=== PATIENT | female | born 1985 | race Hispanic/Latino ===

== ENCOUNTER 2017-11-06 15:07 | Observation (INO) | payer MEDICAID ==
[~2017-11-06] VITALS: Ht 149.9 cm; Wt 116.1 kg
[2017-11-06 16:05] LABS: APPEARANCE,URINE Clear (CLEAR); BILIRUBIN,URINE Negative (NEGATIVE); COLOR,URINE Yellow (YELLOW); GLUCOSE, URINE (UA) Negative (NEGATIVE); KETONES,URINE Negative (NEGATIVE); LEUKOCYTE ESTERASE ,URINE Small (NEGATIVE); NITRATE,URINE Negative (NEGATIVE); OCCULT BLOOD,URINE Negative (NEGATIVE); PH,URINE 5.5 (5.0-8.0); PROTEIN,URINE Trace (NEGATIVE); UROBILINOGEN,URINE 0.2 mg/dL (0.2-1.0)
[2017-11-06 16:22] LABS: BACTERIA,URINE Few /HPF (None Seen); RBC,URINE None Seen /HPF (0-1); SQUAMOUS EPITHELIAL CELL,UR 30-50 /HPF (0-2)
== END 2017-11-06 18:22 | disposition home or self-care (01) ==
LOC: LDH 15:07
PROVIDERS: ADMIT Obstetrics & Gynecology; ATTEND Obstetrics & Gynecology
DX: O26.893 Other specified pregnancy related conditions, third trimester (principal); R10.2 Pelvic and perineal pain; Z3A.37 37 weeks gestation of pregnancy; Z86.32 Personal history of gestational diabetes
CPT/HCPCS: 81001; G0378

== ENCOUNTER 2017-11-11 15:50 | Inpatient (IN) | payer MEDICAID ==
[~2017-11-11] VITALS: Ht 149.9 cm; Wt 108.9 kg
[2017-11-11] MEDS ORDERED: LACTATED RINGERS 1000ML 1,000 ML IV PRN (16:19)
[2017-11-11] MEDS ORDERED: OXYTOCIN-LR 20 UNITS/1000 ML 1,000 ML IV SCH (16:30)
[2017-11-11 17:16] LABS: HEMATOCRIT 36.8 % (36-48); MEAN CORPUSCULAR HEMOGLOBIN 25.9 pg (27.0-33.0); MEAN CORPUSCULAR HGB CONC 33.2 g/dL (32.0-36.0); MEAN CORPUSCULAR VOLUME 78.2 fL (79-99); PLATELET COUNT (AUTO) 271 K/uL (130-400); RED BLOOD CELL COUNT(AUTO) 4.71 MIL/uL (4.00-5.50); RED CELL DISTRIBUTION WIDTH 14.7 % (11.0-15.5); WHITE BLOOD COUNT (AUTO) 13.1 K/uL (4.8-10.8)
[2017-11-11 17:19] LABS: APPEARANCE,URINE Cloudy (CLEAR); BILIRUBIN,URINE Negative (NEGATIVE); COLOR,URINE Yellow (YELLOW); GLUCOSE, URINE (UA) Negative (NEGATIVE); KETONES,URINE Negative (NEGATIVE); LEUKOCYTE ESTERASE ,URINE Small (NEGATIVE); NITRATE,URINE Negative (NEGATIVE); OCCULT BLOOD,URINE Negative (NEGATIVE); PH,URINE 5.5 (5.0-8.0); PROTEIN,URINE POS 1+ (NEGATIVE); UROBILINOGEN,URINE 0.2 mg/dL (0.2-1.0)
[2017-11-11] MEDS ORDERED: LACTATED RINGERS 1000ML 1,000 ML IV SCH (17:30)
[2017-11-11] MEDS ORDERED: CEFAZOLIN SODIUM 1 GM VIAL ONE (17:32)
[2017-11-11 17:43] LABS: BACTERIA,URINE Many /HPF (None Seen); RBC,URINE None Seen /HPF (0-1); SQUAMOUS EPITHELIAL CELL,UR 50-100 /HPF (0-2)
[2017-11-11] MEDS ORDERED: DURAMORPH PF1 MG/ML 10ML AMP IV ONE (17:51)
[2017-11-11] MEDS ORDERED: CEFAZOLIN SODIUM 1 GM VIAL IVP ONE (18:10)
[2017-11-11] MEDS ORDERED: MIDAZOLAM HCL 1 MG/ML 2ML VIAL ONE (18:17)
[2017-11-11] MEDS ORDERED: METOCLOPRAMIDE 10 MG/2 ML VIAL ONE (18:32)
[2017-11-11] MEDS ORDERED: NEOSTIGMINE METHYLSULFATE 1MG/ML IV ONE (18:32)
[2017-11-11] MEDS ORDERED: SUCCINYLCHOLINE 200MG/10ML SYR ONE (18:32)
[2017-11-11] MEDS ORDERED: OXYTOCIN 10 UNIT/1ML 10ML VIAL ONE (18:32)
[2017-11-11] MEDS ORDERED: GLYCOPYRROLATE 0.2 MG/ML 5 ML VIAL ONE (18:32)
[2017-11-11] MEDS ORDERED: ROCURONIUM 10MG/1ML SYR 10 MG/ML ML ONE (18:32)
[2017-11-11] MEDS ORDERED: LIDOCAINE HCL-MPF 2% 10ML AMP IJ ONE ×2 (18:32→18:33)
[2017-11-11] MEDS ORDERED: BUPIVACAINE/PF 0.25% 30ML VIAL IJ ONE (18:33)
[2017-11-11] MEDS ORDERED: CEFAZOLIN SODIUM 1 GM VIAL IVP PRN (19:00)
[2017-11-11 20:00] VITALS: BP 113/60
[2017-11-11] MEDS ORDERED: OXYTOCIN-LR 20 UNITS/1000 ML 1,000 ML IV PRN (20:26)
[2017-11-11] MEDS ORDERED: DEXTROSE 5 %-0.45 % NACL 1,000 ML IV PRN (20:30)
[2017-11-11] MEDS ORDERED: PROMETHAZINE HCL 25 MG/ML 1ML AMPULE IM PRN ×2 (20:30→22:15)
[2017-11-11] MEDS ORDERED: SODIUM CHLORIDE 0.9% 10 ML VIAL IVP PRN (20:30)
[2017-11-11] MEDS ORDERED: MEPERIDINE-PF 75 MG/ML SYG IM PRN (20:30)
[2017-11-11] MEDS ORDERED: ONDANSETRON HCL MDV 20ML 2 MG/ML VIAL IVP PRN ×2 (21:00→22:15)
[2017-11-11] MEDS ORDERED: ONDANSETRON HCL MDV 20ML 8 MG in SODIUM CHLORIDE 0.9% 50 ML IVP NR (22:15)
[2017-11-11] MEDS ORDERED: ONDANSETRON HCL 4 MG/2 ML VIAL IVP PRN (22:15)
[2017-11-11] MEDS ORDERED: EPHEDRINE SULFATE 50 MG/ML AMPULE IVP PRN (22:15)
[2017-11-11] MEDS ORDERED: METOCLOPRAMIDE 10 MG/2 ML VIAL IVP PRN (22:15)
[2017-11-11] MEDS ORDERED: DiphenhydrAMINE HCL 50 MG/ML VIAL IVP PRN (22:15)
[2017-11-11] MEDS ORDERED: NALOXONE HCL 0.4 MG/1 ML ML IVP PRN (22:15)
[2017-11-11] MEDS ORDERED: MORPHINE SULFATE 2 MG/ML 1ML SYG IVP PRN (22:15)
[2017-11-11] MEDS ORDERED: HYDROCODONE/ACETAMINOPHEN 5/325 MG TAB PO PRN ×2 (22:15)
[2017-11-11] MEDS ORDERED: OXYTOCIN 10 USP UNITS/ML ONE (22:56)
[2017-11-11 23:23] VITALS: BP 133/67
[2017-11-12] MEDS ORDERED: INSU100V3 IJ ×3 (02:35)
[2017-11-12] MEDS ORDERED: INSNPH SQ ×2 (02:35)
[2017-11-12] MEDS ORDERED: PNV1TABL77 PO (02:35)
[2017-11-12 03:15] VITALS: BP 144/73
[2017-11-12 05:32] LABS: HEMATOCRIT 35.6 % (36-48); MEAN CORPUSCULAR HEMOGLOBIN 26.3 pg (27.0-33.0); MEAN CORPUSCULAR HGB CONC 33.5 g/dL (32.0-36.0); MEAN CORPUSCULAR VOLUME 78.4 fL (79-99); PLATELET COUNT (AUTO) 241 K/uL (130-400); RED BLOOD CELL COUNT(AUTO) 4.54 MIL/uL (4.00-5.50); RED CELL DISTRIBUTION WIDTH 14.9 % (11.0-15.5); WHITE BLOOD COUNT (AUTO) 14.1 K/uL (4.8-10.8)
[2017-11-12] MEDS: SODIUM CHLORIDE 0.9% 1000ML 1,000 ML IV SCH ×2 (06:02→12:40)
[2017-11-12 07:34] VITALS: BP 131/72
[2017-11-12] MEDS ORDERED: BISACODYL 10 MG SUPP.RECT RC PRN (08:00)
[2017-11-12] MEDS ORDERED: HYDROCODONE/ACETAMINOPHEN 5/325 MG TAB PO PRN (08:00)
[2017-11-12] MEDS ORDERED: LANOLIN 30GM OINTMENT TP PRN (08:00)
[2017-11-12] MEDS ORDERED: ACETAMINOPHEN EXTRA STRENGTH 500 MG TABLET PO PRN (08:00)
[2017-11-12] MEDS: SIMETHICONE 80 MG TAB.CHEW PO PRN ×3 (09:27→19:07)
[2017-11-12] MEDS: DOCUSATE SODIUM 100 MG CAP PO SCH ×2 (09:27→20:22)
[2017-11-12] MEDS: IBUPROFEN 600 MG TABLET PO PRN ×2 (09:28→15:07)
[2017-11-12 11:19] VITALS: BP 137/80
[2017-11-12 15:51] VITALS: BP 126/76
[2017-11-12] MEDS: DIPH,PERTUSS(ACELL),TET VAC/PF 0.5 ML VIAL IM SCH (16:53)
[2017-11-12 19:56] VITALS: BP 122/59
[2017-11-12 23:34] VITALS: BP 116/70
[2017-11-13] MEDS: IBUPROFEN 600 MG TABLET PO PRN ×3 (01:25→17:44)
[2017-11-13 04:19] VITALS: BP 111/63
[2017-11-13] MEDS: ACETAMINOPHEN-CODEINE 300/30MG TAB PO PRN ×2 (07:00→11:33)
[2017-11-13 07:42] VITALS: BP 141/84
[2017-11-13] MEDS: DIPH,PERTUSS(ACELL),TET VAC/PF 0.5 ML VIAL IM SCH (08:00)
[2017-11-13 08:21] LABS: HEPATITIS Bs ANTIGEN SCREEN P Negative (Negative)
[2017-11-13] MEDS: SIMETHICONE 80 MG TAB.CHEW PO PRN ×3 (08:57→20:58)
[2017-11-13] MEDS: DOCUSATE SODIUM 100 MG CAP PO SCH ×2 (08:57→20:58)
[2017-11-13 11:25] VITALS: BP 144/81
[2017-11-13] MEDS: SODIUM CHLORIDE 0.9% 1000ML 1,000 ML IV SCH (14:28)
[2017-11-13 15:21] VITALS: BP 134/76
[2017-11-13 19:40] VITALS: BP 161/90
== END 2017-11-13 21:45 | disposition home or self-care (01) | DRG 540 ==
LOC: OBSVTOIN 15:50 → LDH 15:50 → WSH 19:52
PROVIDERS: ADMIT Obstetrics & Gynecology; ATTEND Obstetrics & Gynecology
PROC: 3E0234Z Introduction of Serum, Toxoid and Vaccine into Muscle, Percutaneous Approach (ICD-10-PCS; 2017-11-11)
PROC: 10D00Z1 Extraction of Products of Conception, Low, Open Approach (ICD-10-PCS; principal; 2017-11-11 18:00)
DX: O76 Abnormality in fetal heart rate and rhythm complicating labor and delivery (principal); O24.92 Unspecified diabetes mellitus in childbirth; E66.01 Morbid (severe) obesity due to excess calories; O41.03X0 Oligohydramnios, third trimester, not applicable or unspecified; O34.211 Maternal care for low transverse scar from previous cesarean delivery; O99.214 Obesity complicating childbirth; E11.9 Type 2 diabetes mellitus without complications; O77.0 Labor and delivery complicated by meconium in amniotic fluid; Z37.0 Single live birth; Z79.4 Long term (current) use of insulin; Z68.42 Body mass index [BMI] 45.0-49.9, adult; Z3A.38 38 weeks gestation of pregnancy; Z23 Encounter for immunization
CPT/HCPCS: 36415; 59510; 81001; 82947; 82948; 85027; 86592; 86850; 86900; 86901; 87340; 90715; A4344; A4450; A4606; J0330; J0690; J2175; J2250; J2274; J2550; J2590; J2710; J2765; J3490; J7120